=== PATIENT | female | born 2000 | race Caucasian/White ===

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

== ENCOUNTER 2021-03-22 17:33 | Emergency (ER) | payer BC ==
[~2021-03-22] VITALS: Ht 167.6 cm; Wt 110.3 kg
[~2021-03-22 17:33] MED LIST: B CO1TAB37 PO; PHEN15CA2 PO; SERT100T32 PO; SERT50TA28 PO
[2021-03-22 17:35] VITALS: BP 139/93
--- NOTE | 2021-03-22 18:40 | NUR ---
ADMITTING BEDSIDE W/ PT. PT SITTING ON NADN. CHRISTIANO
--- NOTE | 2021-03-22 19:22 | NUR ---
ALL RESULTS ARE BACK AT THIS TIME. CHART UP FOR RECHECK.
== END 2021-03-22 20:51 | disposition home or self-care (01) ==
LOC: ED 18:36
DX: S90.32XA Contusion of left foot, initial encounter (principal); X58.XXXA Exposure to other specified factors, initial encounter; Y93.89 Activity, other specified; Y92.009 Unspecified place in unspecified non-institutional (private) residence as the place of occurrence of the external cause; Y99.8 Other external cause status
CPT/HCPCS: 99283